=== PATIENT | female | born 1975 | race Caucasian/White ===

== ENCOUNTER → 2016-09-01 | Outpatient (CLI) | payer BC ==
--- NOTE | 2016-09-01 19:11 | XR ---
EXAMINATION TYPE: XR cervical spine comp DATE OF EXAM: 09/01/2016 COMPARISON: NONE HISTORY: Neck pain TECHNIQUE: 5 views FINDINGS: Vertebra have normal spacing and alignment. There is minor spurring at C5-6 endplates. Post erior elements are intact. Atlantoaxial facet joint is normal. Neural foramina are widely patent. The re are no cervical ribs. IMPRESSION: Mild degenerative disc changes C5-C6. Otherwise negative exam.
== END | disposition home or self-care (01) ==
LOC: RADXRMAIN 17:29
PROVIDERS: ATTEND Family Medicine
DX: M47.812 Spondylosis without myelopathy or radiculopathy, cervical region (principal)
CPT/HCPCS: 72050

== ENCOUNTER 2016-12-25 17:53 | Emergency (ER) | payer BC ==
[2016-12-25 18:06] VITALS: BP 126/76; PULSE 93; RESP 18; TEMP 97.6
[2016-12-25] MEDS ORDERED: IBUPROFEN 800 MG TAB PO STA (18:53)
--- NOTE | 2016-12-25 19:06 | ED ---
Lower Extremity Injury HPI - General Chief Complaint: Extremity Injury, Lower Stated Complaint: left ankle injury Time Seen by Provider: 12/25/16 18:47 Source: patient Mode of arrival: ambulatory Limitations: no limitations - History of Present Illness Initial Comments: Patient is a 41-year-old female presenting to the emergency department with a chief complaint of left lateral ankle pain. Patient states she was walking down a couple stairs in her house around 10 AM this morning when she slipped and rolled her ankle. Patient was able to ambulate at the scene of injury. Patient works midnights and went to bed. When patient woke up her left ankle pain persisted. Patient denies previous injury or fracture to left ankle. Patient is currently rating pain 7 out of 10, described as sharp , exacerbated with movement, relieved with rest. Patient denies recent illness , fevers, nausea, vomiting, shortness of breath, chest pain, abdominal pain, numbness or tingling. Patient is able to ambulate in the emergency department. No treatment prior to arrival. - Related Data Home Medications Medication Instructions Recorded Confirmed traZODone HCL [Desyrel] 300 mg PO HS 07/22/14 07/22/14 Previous Rx's Medication Instructions Recorded Levothyroxine Sodium [Synthroid] 75 mcg PO DAILY@0630 #30 tablet 11/25/13 clonazePAM [KlonoPIN] 1 mg PO BID #60 tab 11/25/13 Acetaminophen-Codeine 300-30mg 1 tab PO Q6H PRN #20 tablet 07/22/14 [Tylenol #3] Ibuprofen [Motrin] 600 mg PO Q8HR PRN #30 tab 07/22/14 Allergies Allergy/AdvReac Type Severity Reaction Status Date / Time No Known Allergies Allergy Verified 12/25/16 18:06 Review of Systems ROS Statement: Those systems with pertinent positive or pertinent negative responses have been documented in the HPI. ROS Other: All systems not noted in ROS Statement are negative. 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, ADHD History of Any Multi-Drug Resistant Organisms: None Reported Additional Past Surgical History / Comment(s): left foot fx, left knee ligaments were loose for over a years Past Anesthesia/Blood Transfusion Reactions: No Reported Reaction Past Psychological History: ADD/ADHD, Anxiety, Depression Smoking Status: Former smoker Past Alcohol Use History: Occasional Past Drug Use History: None Reported - Past Family History Father Family Medical History: Hypertension Additional Family Medical History / Comment(s): dad hypertension and mom has CA cervical, aunt and grandma CA General Exam Limitations: no limitations General appearance: alert, in no apparent distress Head exam: Present: atraumatic, normocephalic, normal inspection Eye exam: Present: normal appearance ENT exam: Present: normal exam, mucous membranes moist, normal external ear exam Neck exam: Present: normal inspection, full ROM. Absent: tenderness, lymphadenopathy Respiratory exam: Present: normal lung sounds bilaterally. Absent: respiratory distress, wheezes, rales, rhonchi, chest wall tenderness, accessory muscle use Cardiovascular Exam: Present: regular rate, normal rhythm, normal heart sounds. Absent: systolic murmur GI/Abdominal exam: Present: soft, normal bowel sounds. Absent: distended, tenderness Left Lower Leg exam: Present: normal inspection, full ROM. Absent: tenderness, swelling Ankle exam: Present: full ROM, tenderness (Tenderness, swelling, and ecchymosis to the lateral malleolus), swelling Foot/Toe exam: Present: normal inspection, full ROM. Absent: tenderness, swelling, ecchymosis, deformity, calcaneal tenderness, tenderness at base of 5th metatarsal Neurovascular tendon exam: Present: no vascular compromise. Absent: pulse deficit, abnormal cap refill, motor deficit, sensory deficit, tendon deficit, extremity cold to touch, pallor, foot drop, significant pain with passive ROM of distal joint Gait: not tested/not observed Neurological exam: Present: alert, oriented X3, CN II-XII intact, reflexes normal. Absent: motor sensory deficit Psychiatric exam: Present: normal affect, normal mood Skin exam: Present: warm, dry, intact Course Vital Signs 12/25/16 18:03 Temperature 97.6 F Pulse Rate 93 Respiratory 18 Rate Blood Pressure 126/76 O2 Sat by Pulse 96 Oximetry Medical Decision Making - Medical Decision Making Left ankle sprain. Hosea wrap applied. Patient instructed to follow-up with [facility] if pain persists. Patient instructed to return to emergency department with any new or worsening symptoms. Patient agrees to treatment plan. - Radiology Data Radiology results: report reviewed Left ankle sprain: Moderate soft tissue swelling over lateral malleolus. No acute fracture or dislocation. Disposition Clinical Impression: Left ankle sprain Disposition: HOME SELF-CARE Condition: Good Instructions: Ankle Sprain (ED) Additional Instructions: Avoid activity that causes pain Ice 20 minutes 4 times a day usually for 2-3 days Hosea wrap to provide support and limit swelling Keep elevated as much as possible 24-48 hours. Continue Motrin 800 mg every 8 hours for next 48 hours. Return to the emergency department with symptoms of increased swelling, pain, numbness, tingling, or foot feeling cold to touch. Follow-up with primary service and orthopedic service as directed if pain persists. Referrals: Norberto Hicks Jr, DO [Primary Care Provider] - 1-2 days Tomás Germain DO [Doctor of Osteopathic Medicine] - 1-2 days Time of Disposition: 19:34
--- NOTE | 2016-12-25 19:30 | XR ---
EXAMINATION TYPE: XR ankle complete LT DATE OF EXAM: 12/25/2016 CLINICAL HISTORY: Left ankle pain after injury TECHNIQUE: Frontal, lateral and oblique images of the left ankle are obtained. COMPARISON: None. FINDINGS: There is moderate soft tissue swelling over lateral malleolus. There is no acute fracture/ dislocation evident in the left ankle. There is slight asymmetric widening of the lateral aspect of a nkle mortise. IMPRESSION: There is no acute fracture or dislocation in the left ankle. There is soft tissue swelli ng with mortise asymmetry, underlying ligamentous injury cannot be excluded. Need to further investig ate by MRI should be based on clinical correlation.
== END 2016-12-25 19:43 | disposition home or self-care (01) ==
LOC: EC 17:53
DX: S93.402A Sprain of unspecified ligament of left ankle, initial encounter (principal); F32.9 Major depressive disorder, single episode, unspecified; Z87.891 Personal history of nicotine dependence; Z79.899 Other long term (current) drug therapy; X58.XXXA Exposure to other specified factors, initial encounter
CPT/HCPCS: 99283